=== PATIENT | male | born 1960 | race African-American/Black ===

== ENCOUNTER 2017-03-20 07:31 | Emergency (ER) | payer MEDICAID ==
[~2017-03-20] VITALS: Ht 177.8 cm; Wt 59.0 kg
[~2017-03-20 07:31] MED LIST: ASPI81TA27 PO; DOXY-216 PEG; FER300LQ GT; HYDR-4663 PO; LACT10SO3 PO; LEVO750T64 PEG; METF-370 PO; METH10T GT; ONDA4TAB5 PO; POLY33504 PO; PRO10T PO; SENN8.6T15 PO
== END 2017-03-20 12:52 | disposition expired ==
LOC: ER 07:31
DX: I46.9 Cardiac arrest, cause unspecified (principal); C76.0 Malignant neoplasm of head, face and neck; I10 Essential (primary) hypertension; Z88.0 Allergy status to penicillin; Z88.6 Allergy status to analgesic agent
CPT/HCPCS: 92950